=== PATIENT | male | born 1950 | race Caucasian/White ===

== ENCOUNTER 2018-03-21 16:13 | Emergency (ER) | payer MEDICARE, MEDICAID ==
[2018-03-21] MEDS ORDERED: IPRATROPIUM/ALBUTEROL 0.5-2.5 MG/3 ML AMPUL NEB ONE (16:33)
[2018-03-21] MEDS ORDERED: LIDOCAINE 1% INJ-PF (10 MG/ML) 30 ML SDV NEB ONE (16:33)
[2018-03-21] MEDS ORDERED: NORMAL SALINE 1000 ML 1,000 ML IV ONE (16:34)
[2018-03-21] MEDS ORDERED: ONDANSETRON HCL INJ/PF 4 MG/2 ML SDV IV ONE (16:34)
--- NOTE | 2018-03-21 16:40 | ER Document Report ---
ED Medical Screen (RME) - General Chief Complaint: Flu Symptoms Stated Complaint: FLU LIKE SYMPTOMS Time Seen by Provider: 03/21/18 16:29 Primary Care Provider: ALBERT OLIVARES MD [Primary Care Provider] - Follow up as needed TRAVEL OUTSIDE OF THE [place] IN LAST 30 DAYS: No - HPI Notes: 03/21/18 16:41 Diagnosed at urgent care yesterday for flu has a history of COPD hypertension st ates feeling worse now nausea vomiting was started on Tamiflu - Related Data Allergies/Adverse Reactions: No Known Allergies Allergy (Verified 05/28/13 10:07) Past Medical History - Past Medical History Cardiac Medical History: Reports: Hx Coronary Artery Disease, Hx Heart Attack, Hx Hypertension Pulmonary Medical History: Reports: Hx Bronchitis, Hx COPD Denies: Hx Asthma, Hx Pneumonia Neurological Medical History: Denies: Hx Cerebrovascular Accident, Hx Seizures Musculoskeltal Medical History: Reports Hx Arthritis - r.shoulder, bone spurs Past Surgical History: Reports: Hx Cardiac Surgery - 5 stents placed. Denies: Hx Pacemaker - Immunizations Hx Diphtheria, Pertussis, Tetanus Vaccination: No Physical Exam - Vital signs Vitals: Temp Pulse Resp BP Pulse Ox 100.4 F 96 19 136/79 H 95 03/21/18 16:24 03/21/18 16:24 03/21/18 16:24 03/21/18 16:24 03/21/18 16:24 - Respiratory Breath sounds: Rhonchi, Wheezing Course - Vital Signs Vital signs: Temp Pulse Resp BP Pulse Ox 100.4 F 96 19 136/79 H 95 03/21/18 16:24 03/21/18 16:24 03/21/18 16:24 03/21/18 16:24 03/21/18 16:24 Doctor's Discharge - Discharge Referrals: ALBERT OLIVARSE MD [Primary Care Provider] - Follow up as needed
--- NOTE | 2018-03-21 17:17 | RADIOLOGY REPORT (SQ) ---
EXAM DESCRIPTION: CHEST 2 VIEWS COMPLETED DATE/TIME: 03/21/2018 4:52 pm REASON FOR STUDY: sob COMPARISON: None. EXAM PARAMETERS: NUMBER OF VIEWS: two views TECHNIQUE: Digital Frontal and Lateral radiographic views of the chest acquired. RADIATION DOSE: NA LIMITATIONS: none FINDINGS: LUNGS AND PLEURA: Minimal diffuse bilateral interstitial pulmonary opacity. MEDIASTINUM AND HILAR STRUCTURES: No masses or contour abnormalities. HEART AND VASCULAR STRUCTURES: Heart normal size. No evidence for failure. BONES: No acute findings. HARDWARE: None in the chest. OTHER: No other significant finding. IMPRESSION: Minimal diffuse bilateral interstitial pulmonary opacity, which may reflect edema or alt ernately chronic interstitial change. Findings are generally similar to prior dated 05/28/2013. Ther e is no acute focal airspace opacity. TECHNICAL DOCUMENTATION: JOB ID: [id number] [employer]- All Rights Reserved Reading location - IP/workstation name: [email or web address]
[2018-03-21 17:20] LABS: ABSOLUTE BASOPHILS # (AUTO) 0.2 10^3/uL (0.0-0.2); ABSOLUTE EOSINOPHILS # (AUTO) 0.2 10^3/uL (0.0-0.6); ABSOLUTE LYMPHOCYTES (AUTO) 1.6 10^3/uL (0.5-4.7); ABSOLUTE MONOCYTES (AUTO) 0.9 10^3/uL (0.1-1.4); ABSOLUTE NEUT (AUTO) 8.7 10^3/uL (1.7-8.2); BASOPHILS % (AUTO) 1.3 % (0-2); EOSINOPHILS % (AUTO) 1.6 % (0-6); HEMATOCRIT 46.5 % (37.9-51.0); LYMPHOCYTES % (AUTO) 13.9 % (13-45); MEAN CORPUSCULAR HEMOGLOBIN 31.4 pg (27.0-33.4); MEAN CORPUSCULAR HGB CONC 34.3 g/dL (32.0-36.0); MEAN CORPUSCULAR VOLUME 92 fl (80-97); MONOCYTES % (AUTO) 7.7 % (3-13); PLATELET COUNT 164 10^3/uL (150-450); RED BLOOD COUNT 5.09 10^6/uL (4.35-5.55); RED CELL DISTRIBUTION WIDTH 14.4 % (11.5-14.0); SEGMENTED NEUTROPHILS % (AUTO) 75.5 % (42-78); TOTAL CELLS COUNTED % (AUTO) 100 %; WHITE BLOOD COUNT 11.6 10^3/uL (4.0-10.5)
[2018-03-21] MEDS ORDERED: METHYLPREDNISOLONE INJ 125 MG/2 ML SDV IV ONE (17:34)
[2018-03-21 17:38] LABS: ALANINE AMINOTRANSFERASE 41 U/L (21-72); ALBUMIN 4.8 g/dL (3.5-5.0); ALKALINE PHOSPHATASE 57 U/L (38-126); ANION GAP 13 (5-19); ASPARTATE AMINO TRANSFERASE 28 U/L (17-59); BILIRUBIN,DIRECT 0.2 mg/dL (0.0-0.4); BILIRUBIN,TOTAL 0.9 mg/dL (0.2-1.3); BLOOD UREA NITROGEN 10 mg/dL (7-20); CALCIUM 9.7 mg/dL (8.4-10.2); CARBON DIOXIDE 30 mmol/L (22-30); CHLORIDE 96 mmol/L (98-107); GLUCOSE 99 mg/dL (75-110); POTASSIUM 4.7 mmol/L (3.6-5.0); SODIUM 138.6 mmol/L (137-145); TOTAL PROTEIN 7.5 g/dL (6.3-8.2)
[2018-03-21] MEDS ORDERED: ACETAMINOPHEN 325 MG TABLET PO ONE (17:38)
--- NOTE | 2018-03-21 17:53 | EKG REPORT ---
SEVERITY:- NORMAL ECG - SINUS RHYTHM : Confirmed by: Bradford Castelan MD 21-Mar-2018 17:52:17
[2018-03-21 17:58] LABS: CREATINE KINASE 109 U/L (55-170)
[2018-03-21] MEDS ORDERED: BENZONATATE 100 MG CAPSULE PO ONE (18:20)
[2018-03-21] MEDS ORDERED: ALBUTEROL SULFATE 0.083% NEB 2.5 MG/3 ML AMPUL NEB ONE (18:20)
[2018-03-21 18:24] LABS: CREATINE KINASE MB 0.42 ng/mL (<4.55)
[2018-03-21 18:25] LABS: TROPONIN I < 0.012 ng/mL
[2018-03-21 19:14] VITALS: BP 119/66
[2018-03-21] MEDS ORDERED: PREDNISONE 20 MG TABLET PO ONE (19:26)
[2018-03-21] MEDS ORDERED: ONDANSETRON ODT 4 MG TAB (6 TAB/ER DISP) PO PRN (19:34)
--- NOTE | 2018-03-21 21:54 | ER Document Report ---
Entered by ASHWIN TREVIZO SCRIBE 03/21/18 1747 Acting as scribe for:SELINA DELVALLE MD ED General - General Chief Complaint: Flu Symptoms Stated Complaint: FLU LIKE SYMPTOMS Time Seen by Provider: 03/21/18 16:29 Primary Care Provider: ALBERT OLIVARES MD [NO LOCAL MD] - Follow up as needed Mode of Arrival: Ambulatory Information source: Patient Notes: Patient is a 68 year old male with CAD, COPD presents to the emergency department complaining of nausea, vomiting and wheezing onset yesterday. Patient states he was diagnosed with the flu in urgent care yesterday was prescribed Tamiflu. He states his symptoms have progressively worsened since yesterday. Patient also reports being diagnosed with bronchitis a few weeks ago and just finished prednisone and an unknown antibiotic several days ago. Patient also complains of a sore throat. Patient reports seeing his ENT on 03/18/2018 and being prescribed Flonase and Sudafed. Patient reports having a nebulizer at home but is currently afraid to use it. TRAVEL OUTSIDE OF THE [place] IN LAST 30 DAYS: No - Related Data Allergies/Adverse Reactions: No Known Allergies Allergy (Verified 05/28/13 10:07) Past Medical History - General Information source: Patient - Social History Smoking Status: Current Every Day Smoker Cigarette use (# per day): Yes Smoking Education Provided: No Family History: Reviewed & Not Pertinent Patient has suicidal ideation: No Patient has homicidal ideation: No - Past Medical History Cardiac Medical History: Reports: Hx Coronary Artery Disease, Hx Heart Attack, Hx Hypertension Pulmonary Medical History: Reports: Hx Bronchitis, Hx COPD Musculoskeletal Medical History: Reports Hx Arthritis - r.shoulder, bone spurs Past Surgical History: Reports: Hx Cardiac Surgery - 5 stents placed. Denies: Hx Pacemaker - Immunizations Hx Diphtheria, Pertussis, Tetanus Vaccination: No Review of Systems - Review of Systems Constitutional: No symptoms reported EENT: No symptoms reported Cardiovascular: No symptoms reported Respiratory: See HPI, Wheezing Gastrointestinal: See HPI, Nausea, Vomiting Genitourinary: No symptoms reported Male Genitourinary: No symptoms reported Musculoskeletal: No symptoms reported Skin: No symptoms reported Hematologic/Lymphatic: No symptoms reported Neurological/Psychological: No symptoms reported -: Yes All other systems reviewed and negative Physical Exam - Vital signs Vitals: Temp Pulse Resp BP Pulse Ox 100.4 F 96 19 136/79 H 95 03/21/18 16:24 03/21/18 16:24 03/21/18 16:24 03/21/18 16:24 03/21/18 16:24 - Notes Notes: GENERAL: Alert, appears anxious, interacts well. No acute distress. HEAD: Normocephalic, atraumatic. EYES: Pupils equal, round, and reactive to light. Extraocular movements intact. ENT: Oral mucosa moist, tongue midline. Nares patent, no nasal septal hematoma, rhinorrhea,Nasal congestion. TM's intacts. NECK: Full range of motion. Supple. Trachea midline. LUNGS: Frequent cough.Wheezing, currently receiving a breathing treatment. No respiratory distress. HEART: Regular rate and rhythm. No murmurs, gallops, or rubs. ABDOMEN: Soft, non-tender. Non-distended. Bowel sounds present in all 4 quadrants. EXTREMITIES: Moves all 4 extremities spontaneously. NEUROLOGICAL: Alert and oriented x3. Normal speech. PSYCH: Appears anxious. SKIN: Warm, dry, normal turgor. No rashes or lesions noted. Course - Re-evaluation Re-evalutation: 03/21/18 19:26 Patient's wheezes and rhonchi are improved somewhat at this point. His history, physical exam, lab work and chest x-ray are all consistent with a viral upper respiratory tract infection, most likely influenza as he was diagnosed with yesterday. He was told by his pharmacist last night to stop taking the Sudafed, which I reinforced is a leary decision and with his cardiac history he should never take a medication like that. I have advised him that he does need to use his nebulizer at least every 4 hours for wheezing congestion for the next few days. We will put him back on prednisone. He also just filled a prescription today for Tessalon Perles in addition to the Tamiflu. He had not taken Tessalon Perles yet. I advised him to take the Tessalon Perles as prescribed, and also get the [employer] Equate version of dextromethorphan polistirex for additional cough suppression. - Vital Signs Vital signs: Temp Pulse Resp BP Pulse Ox 100.4 F 96 24 H 119/66 95 03/21/18 16:24 03/21/18 16:24 03/21/18 19:01 03/21/18 19:01 03/21/18 19:01 - Laboratory Result Diagrams: 03/21/18 17:10 03/21/18 17:10 Laboratory results interpreted by me: 03/21/18 03/21/18 17:10 17:10 WBC 11.6 H RDW 14.4 H Absolute Neutrophils 8.7 H Chloride 96 L - Diagnostic Test Radiology reviewed: Image reviewed, Reports reviewed - Chest x-ray shows chronic interstitial changes unchanged from 2014. - EKG Interpretation by Me EKG shows normal: Sinus rhythm, [place], Intervals, QRS Complexes, ST-T Waves Rate: Normal - 94 Rhythm: NSR Discharge - Discharge Clinical Impression: Acute exacerbation of chronic obstructive pulmonary disease (COPD), Viral upper respiratory tract infection with cough, Influenza A Condition: Stable Disposition: HOME, SELF-CARE Additional Instructions: Take the Tessalon Perles for cough. Take the Zofran that was dispensed for nausea if you need it. Drink plenty of fluids. Use your nebulizer every 4 hours for wheezing for the next few days. Start taking the prednisone as prescribed tomorrow. Get the [employer] Equate version of Delsym DM, also called dextromethorphan polistirex to help control your cough. Get plenty of rest and sleep. Follow-up with your primary care provider tomorrow for reevaluation if not improving. RETURN TO THE EMERGENCY ROOM IF ANY NEW OR WORSENING SYMPTOMS. Prescriptions: Prednisone [Deltasone 10 mg Tablet] 10 mg PO ASDIR PRN #21 tablet PRN Reason: Referrals: VAZQUEZ BOO MD [Primary Care Provider] - Follow up as needed I personally performed the services described in the documentation, reviewed and edited the documentation which was dictated to the scribe in my presence, and it accurately records my words and actions.
== END 2018-03-21 20:00 | disposition home or self-care (01) ==
LOC: ER 16:13
DX: J44.1 Chronic obstructive pulmonary disease with (acute) exacerbation (principal); J06.9 Acute upper respiratory infection, unspecified; B34.9 Viral infection, unspecified; R11.2 Nausea with vomiting, unspecified; J11.1 Influenza due to unidentified influenza virus with other respiratory manifestations; F17.210 Nicotine dependence, cigarettes, uncomplicated; I25.10 Atherosclerotic heart disease of native coronary artery without angina pectoris; I25.2 Old myocardial infarction
CPT/HCPCS: 93005; 94640 ×2; 99284; 96374; 96375; 36415; 82553; 82550; 85025; 80053; 84484; 71046; 93010; A9270 ×6; J3490; J2930; J2405; J7030; J7512; J7620